=== PATIENT | female | born 1985 | race Caucasian/White ===

== ENCOUNTER 2017-05-01 15:44 | Emergency (ER) | payer OTHER ==
[2017-05-01 17:33] VITALS: BP 148/79
== END 2017-05-01 17:33 | disposition home or self-care (01) ==
LOC: ED 15:44
DX: S96.911A Strain of unspecified muscle and tendon at ankle and foot level, right foot, initial encounter (principal); R03.0 Elevated blood-pressure reading, without diagnosis of hypertension; V00.131A Fall from skateboard, initial encounter; Y93.51 Activity, roller skating (inline) and skateboarding; Y99.8 Other external cause status; Y92.89 Other specified places as the place of occurrence of the external cause

== ENCOUNTER 2017-06-12 15:45 | Emergency (ER) | payer OTHER ==
[~2017-06-12] VITALS: Ht 157.5 cm; Wt 65.3 kg
[2017-06-12 16:57] VITALS: BP 138/91
== END 2017-06-12 16:57 | disposition home or self-care (01) ==
LOC: ED 15:45
DX: H92.02 Otalgia, left ear (principal)